=== PATIENT | male | born 1980 | race Caucasian/White ===

== ENCOUNTER → 2020-06-12 | Outpatient (CLI) | payer OTHER ==
[2016-08-05 08:10] VITALS: BP 138/74
[~2020-06-12] MED LIST: GUAI120L35 PO; GUAI200T3 PO; IOHEXOL 240 MG/ML 50ML VIAL. ONE; IOHEXOL 240 MG/ML 50ML VIAL. PO ONE; IOHEXOL 300 MG/ML 75 ML VIAL. IV ONE
--- NOTE | 2020-06-12 12:30 | RAD ---
EXAM: Abdomen and pelvis CT with intravenous contrast. HISTORY: Pain. TECHNIQUE: Computed tomographic images of the abdomen and pelvis were obtained following the administ ration of intravenous contrast. Multiplanar reformatting was performed. *One or more of the following individualized dose reduction techniques were utilized for this examina tion: 1. Automated exposure control. 2. Adjustment of the mA and/or kV according to patient size. 3. Use of iterative reconstruction technique. COMPARISON: None. FINDINGS: Evaluation of the lower thorax demonstrates no infiltrate or pleural effusion. There is on call pharmacy technician ecomastia. The heart is normal in size. No hepatic lesion is seen. The gallbladder, pancreas, spleen, adrenal glands and kidneys are unremarkable. There is no appendicitis. There is no bowel obstruction. There is distal colonic diverticulosis. There is segmental wall thicke kaelyn with surrounding fatty stranding and trace fluid within the proximal sigmoid colon, the appearan ce of which favors acute diverticulitis. There is urinary bladder wall thickening likely due to relat magnolia under distention. The aorta is normal in caliber. There are prominent retroperitoneal lymph nodes. These are nonspecifi c and likely physiologic or reactive given the aforementioned findings. There is asymmetric fat withi n the left inguinal canal. There are a few bone islands. There is no suspicious osseous lesion. There is no acute osseous finding. IMPRESSION: 1. Segmental wall thickening with surrounding stranding and trace fluid within the proximal sigmoid c olon, the appearance of which favors acute diverticulitis. No drainable fluid collection is seen. The superimposed on diverticulosis. 2. Urinary bladder wall thickening likely due to relative underdistention. 3. Prominent retroperitoneal lymph nodes, likely physiologic or reactive in etiology, given the afore mentioned findings. Electronically signed by: Manuela Interiano MD (06/12/2020 12:28 PM) [id number]
== END ==
LOC: CT 10:43
PROVIDERS: ATTEND Nurse Practitioner Adult Health
DX: K57.90 Diverticulosis of intestine, part unspecified, without perforation or abscess without bleeding (principal); N62 Hypertrophy of breast
CPT/HCPCS: 74177; Q9966; Q9967